=== PATIENT | female | born 1980 | race African-American/Black ===

== ENCOUNTER 2021-05-04 17:53 | Emergency (ER) | payer MEDICARE, MEDICAID ==
[~2021-05-04] VITALS: Ht 165.1 cm; Wt 102.0 kg
[2021-05-04] MEDS ORDERED: MORPHINE SULFATE 10 MG/ML CPJ IM ONE (18:45)
[2021-05-04 19:06] LABS: BASOPHILS % 0.7 % (0.0-2.0); EOSINOPHILS % 1.2 % (0.0-5.0); HEMATOCRIT. 35.3 % (36.0-48.0); LYMPHOCYTES % 40.8 % (20.0-50.0); MEAN CORPUSCULAR HEMOGLOBIN 30.5 pg (28.0-32.0); MEAN CORPUSCULAR VOLUME 89.7 fL (81.0-99.0); MEAN PLATELET VOLUME 7.5 fl (7.4-10.4); MONOCYTES % 5.2 % (2.0-8.0); NEUTROPHILS % 52.1 % (40.0-76.0); PLATELET 329 x1000/uL (130-400); RED BLOOD CELL COUNT 3.93 mill/uL (4.2-5.4); RED CELL DISTRIBUTION WIDTH 14.8 % (11.6-14.6)
[2021-05-04 19:14] LABS: CHLORIDE 103 mEq/L (98-107)
[2021-05-04 19:20] LABS: HCG SCREEN NEGATIVE
[2021-05-04] MEDS ORDERED: IBUP-2029 MT (20:40)
[2021-05-04 20:53] VITALS: BP 108/60
== END 2021-05-04 21:00 | disposition home or self-care (01) ==
LOC: ER 17:53
DX: M25.552 Pain in left hip (principal); M25.551 Pain in right hip; R59.1 Generalized enlarged lymph nodes; Z96.642 Presence of left artificial hip joint
CPT/HCPCS: 36415; 73502; 80053; 82962; 84703; 85025; 96372; 99284; J2270

== ENCOUNTER 2022-12-02 19:07 | Emergency (ER) | payer OTHER, MEDICAID ==
[~2022-12-02] VITALS: Ht 167.6 cm; Wt 100.0 kg
[~2022-12-02 19:07] MED LIST: IBUP-2029 MT
[2022-12-02 19:30] VITALS: BP 140/83
[2022-12-02] MEDS ORDERED: ACETAMINOPHEN 325MG TABLET PO ONE (22:45)
[2022-12-02] MEDS ORDERED: KETOROLAC 30MG/ML VIAL IM ONE (22:45)
[2022-12-03] MEDS ORDERED: ACET-2708 MT (00:11)
== END 2022-12-03 00:36 | disposition home or self-care (01) ==
LOC: ER 19:32
DX: G89.29 Other chronic pain (principal); M25.552 Pain in left hip; M25.551 Pain in right hip; E11.9 Type 2 diabetes mellitus without complications; M19.90 Unspecified osteoarthritis, unspecified site; J45.909 Unspecified asthma, uncomplicated; I10 Essential (primary) hypertension
CPT/HCPCS: 96372; 99283; J1885

== ENCOUNTER 2023-08-16 19:31 | Emergency (ER) | payer OTHER, MEDICAID ==
[~2023-08-16] VITALS: Ht 172.7 cm; Wt 82.0 kg
[~2023-08-16 19:31] MED LIST changes: +ACET-2708 MT
[2023-08-16 19:36] VITALS: O2SAT 100
[2023-08-16] MEDS ORDERED: HYDROCODONE/ACETAMINOPHEN 5/325MG TABLET PO ONE (20:00)
[2023-08-16 20:41] LABS: CHLORIDE 103 mEq/L (98-107); INDEX HEMOLYSI 1 (1-3); INDEX ICTERIC 1 (1-4); INDEX LIPEMIC 1 (1-3); POTASSIUM 4.3 mEq/L (3.5-5.1); SODIUM 135 mEq/L (136-145)
[2023-08-16 20:43] LABS: BASOPHILS % 0.4 % (0.0-2.0); EOSINOPHILS % 2.2 % (0.0-5.0); HEMATOCRIT. 29.4 % (36.0-48.0); HEMOGLOBIN. 9.9 g/dL (12.0-16.0); LYMPHOCYTES % 33.1 % (20.0-50.0); MEAN CORPUSCULAR HEMOGLOBIN 30.7 pg (28.0-32.0); MEAN CORPUSCULAR HGB CONC 33.8 g/dL (31.0-37.0); MEAN PLATELET VOLUME 7.3 fl (7.4-10.4); MONOCYTES % 6.6 % (2.0-8.0); NEUTROPHILS % 57.7 % (40.0-76.0); PLATELET 434 x1000/uL (130-400); RED BLOOD CELL COUNT 3.23 mill/uL (4.2-5.4); RED CELL DISTRIBUTION WIDTH 13.7 % (11.6-14.6); WHITE BLOOD COUNT 7.9 x1000/uL (4.5-11.0)
[2023-08-16 20:45] LABS: ALANINE AMINOTRANSFERASE 78 IU/L (13-61); ALBUMIN 2.6 g/dL (3.4-5.0); CARBON DIOXIDE 27 mEq/L (21-32); GLUCOSE 101 mg/dL (70-105); UREA NITROGEN BLOOD 9 mg/dL (7-21)
[2023-08-16 20:47] LABS: PROTHROMBIN TIME 10.9 sec (9.6-11.0)
[2023-08-16 20:48] LABS: ASPARTATE AMINOTRANSFERASE 22 IU/L (15-37); BILIRUBIN TOTAL 0.4 mg/dL (0.1-1.0); CREATININE 0.7 mg/dL (0.6-1.3); PROTEIN TOTAL 7.6 g/dL (6.0-8.3)
[2023-08-17 00:21] VITALS: BP 116/70; PULSE 84; RESP 20; TEMP 99.8
== END 2023-08-17 00:53 | disposition short-term general hospital (02) ==
LOC: ER 19:55
DX: R60.0 Localized edema (principal); J45.909 Unspecified asthma, uncomplicated; E11.9 Type 2 diabetes mellitus without complications; I10 Essential (primary) hypertension
CPT/HCPCS: 36415; 80053; 85025; 93970; 99284